=== PATIENT | female | born 1985 | race Hispanic/Latino ===

== ENCOUNTER 2016-10-09 07:52 | Day surgery (SDC) | payer OTHER ==
[2016-10-09] MEDS ORDERED: NACL 0.9% 500 ML 500 ML IV SCH (09:00)
[2016-10-09 09:09] VITALS: BP 85/46
[2016-10-09] MEDS ORDERED: NITROSTAT SL ONE (10:34)
[2016-10-09] MEDS ORDERED: ATROPINE 0.1% (CARDIAC) ONE (10:34)
--- NOTE | 2016-10-09 11:06 | Short Stay Summary ---
Short Stay Documentation Date of service: 10/09/16 - History H&P: obtained from office - Allergies and Medications Current Medications: Allergies latex Allergy (Verified 10/09/16 08:26) Hives haloperidol [From Haldol] Adverse Reaction (Verified 10/09/16 08:26) Anaphylaxis haloperidol lactate [From Haldol] Adverse Reaction (Verified 10/09/16 08:26) Anaphylaxis lorazepam [From Ativan] Adverse Reaction (Verified 10/09/16 08:26) Anaphylaxis Home Medications Medication Instructions Recorded Confirmed Last Taken Type Cardizem CD 120 mg PO DAILY 10/09/16 10/09/16 10/08/16 History EPINEPHrine (NF) [Epipen (Nf)] 0.3 mg IM DAILY PRN 10/09/16 10/09/16 09/17/16 History Norethindrone [Marie] 0.35 mg PO DAILY 10/09/16 10/09/16 10/08/16 History SUMAtriptan SUCCINATE [Imitrex] 50 mg PO DAILY PRN 10/09/16 10/09/16 09/25/16 History lamoTRIgine [LaMICtal] 100 mg PO DAILY 10/09/16 10/09/16 10/08/16 History Active Medications Sodium Chloride (Nacl 0.9% 500 Ml) 500 mls @ 50 mls/hr IV DIRECT LINDY - Physical exam General appearance: no acute distress Integumentary: no rash HEENT: Atraumatic Lungs: Clear to auscultation Breasts: deferred Heart: Regular rate Gastrointestinal: normal Female Genitourinary: deferred Rectal Exam: deferred Extremities: no ischemia Neurological: Normal gait - Brief post op/procedure progress note Date of procedure: 10/09/16 Pre-op diagnosis: Palpitations Post-op diagnosis: same Procedure: TTT Anesthesia: none Findings: see report Surgeon: LIS LOUIS Estimated blood loss: none Pathology: none Condition: stable - Hospital course Hospital course: Uneventful - Disposition Condition at discharge: Good Disposition: DC-01 TO HOME OR SELFCARE Short Stay Discharge Plan Activity: advance as tolerated Weight Bearing Status: Weight Bear as Tolerated Diet: regular Follow up with: KARI ROJAS MD [Primary Care Provider] - 7 Days
--- NOTE | 2016-10-10 01:04 | Tilt Table Report ---
INDICATION FOR PROCEDURE: SVT, rule out inappropriate sinus tachycardia versus postural orthostatic tachycardia syndrome. ORDERING PHYSICIAN: Ankush Crisostomo MD DESCRIPTION OF PROCEDURE: After obtaining written consent, the patient was brought to the aquatic life laborer area. The patient was secured to the tilt table test. At 0 degree horizontal, the patient's blood pressure was 97/58 with a heart rate of 54 sinus maricarmen. The patient was tilted to 85 degrees from horizontal. Immediately after tilting, her blood pressure went up to 111/70 and his heart rate went up to 61 beats per minute. The patient was left in the tilting position for 10 minutes. At the end of the 10 minutes, her blood pressure was 89/59 with a heart rate of 71 beats per minute. The patient had no symptoms whatsoever. Due to the patient's low blood pressure of 89/59, we decided not to proceed and give her sublingual nitroglycerin. The patient was tilted back to horizontal. The patient's blood pressure back in the horizontal position was 93/55 with a heart rate of 59, sinus maricarmen. IMPRESSION: No evidence of inappropriate sinus tachycardia or postural orthostatic tachycardia syndrome. Lowest recorded blood pressure at 85 degrees from horizontal was 89/59 and therefore, nitroglycerin was not administered. RECOMMENDATION: Follow up with referring mill tender. JOB# [id number] CHANTELLE/YISSEL
== END 2016-10-09 11:15 | disposition home or self-care (01) ==
LOC: CATHLABREC 07:52
PROVIDERS: ATTEND Internal Medicine
DX: I47.1 Supraventricular tachycardia (principal); F32.9 Major depressive disorder, single episode, unspecified; I10 Essential (primary) hypertension; E78.5 Hyperlipidemia, unspecified; F17.210 Nicotine dependence, cigarettes, uncomplicated; Z98.890 Other specified postprocedural states; Z91.040 Latex allergy status; Z88.8 Allergy status to other drugs, medicaments and biological substances; Z79.899 Other long term (current) drug therapy; Z82.49 Family history of ischemic heart disease and other diseases of the circulatory system
CPT/HCPCS: 93660; J7040; J0461